=== PATIENT | male | born 1930 | race Caucasian/White ===

== ENCOUNTER 2017-02-05 10:20 | Observation (INO) | payer OTHER ==
--- NOTE | 2017-02-05 11:01 | CPEKG ---
Heart Rate: 91 RR Interval: 659 QRSD Interval: 94 QT Interval: 400 QTC Interval: 493 QRS [place]: 263 T Wave Vilonia: 4 EKG Severity - ABNORMAL ECG - EKG Impression: ATRIAL FIBRILLATION EKG Impression: LEFT ANTERIOR FASCICULAR BLOCK EKG Impression: LOW VOLTAGE IN FRONTAL LEADS EKG Impression: BORDERLINE R WAVE PROGRESSION, ANTERIOR LEADS EKG Impression: BORDERLINE PROLONGED QT INTERVAL Electronically Signed By: Robert Lewis 05-Feb-2017 15:00:40
[2017-02-05 11:04] LABS: % IMMATURE GRANULYOCYTES 0.3 % (0.0-1.1); ABSOLUTE IMMATURE GRANULOCYTES 0.02 10^3/uL (0.00-0.10); ADD DIFF? NO; ADD MORPH? NO; ADD SCAN? NO; ATYPICAL LYMPHOCYTE FLAG 0 (0-99); FRAGMENT RBC FLAG 0 (0-99); HEMATOCRIT 44.6 % (40.0-51.0); HEMOGLOBIN 15.1 g/dL (13.7-17.5); LEFT SHIFT FLG 0 (0-99); LIPEMIA HEMOLYSIS FLAG 90 (0-99); MEAN CELL HEMOGLOBIN 32.8 pg (27.9-34.1); MEAN CELL HEMOGLOBIN CONCENTR. 33.9 g/dL (32.4-36.7); MEAN CELL VOLUME 96.7 fL (81.5-99.8); PLATELET CLUMPS FLAG 30 (0-99); PLATELET COUNT 94 10^3/uL (150-400); RED BLOOD CELL COUNT 4.61 10^6/uL (4.40-6.38); RED CELL DISTRIBUTION WIDTH 13.5 % (11.5-15.2)
[2017-02-05 11:14] LABS: INR 2.99 (0.83-1.16); PROTIME(PATIENT) 31.5 SEC (12.0-15.0)
[2017-02-05 11:15] LABS: APTT 46.2 SEC (23.0-38.0)
[2017-02-05 11:33] LABS: ANION GAP 11 mEq/L (8-16); CALCIUM 9.1 mg/dL (8.5-10.4); CARBON DIOXIDE 25 mEq/l (22-31); CHLORIDE 104 mEq/L (97-110); CREATININE 0.8 mg/dL (0.7-1.3); GLOMERULAR FILTRATION RATE > 60; GLUCOSE 91 mg/dL (70-100); POTASSIUM 4.1 mEq/L (3.5-5.2); SODIUM 140 mEq/L (134-144)
--- NOTE | 2017-02-05 12:01 | EDPHY ---
H & P Stated Complaint: coughing up blood; on xarelto Time Seen by Provider: 02/05/17 12:00 HPI/ROS: HPI: This 86-year-old male who presents with Chief Complaint: Coughing up blood Location: Chest Quality: Coughing up blood Duration: Since yesterday Signs and Symptoms:+ productive cough, + shortness of breath on exertion and at rest, + lower extremity swelling, + orthopnea, + paroxysmal nocturnal dyspnea, no bleeding gums, no bruising Timing: Gradually worsening Severity: Moderate Context: Patient has a history of atrial fibrillation on Xarelto x 1 year, tobacco use since age 17 reports he only chews nicotine gum now but son is doubtful that he isn't still smoking cigarettes, congestive heart failure on Lasix 20 mg daily. Patient reports increasing frequency of productive cough over the last week. Yesterday he noted blood tinged sputum and this morning he coughed up a large amount of blood; has not had any episodes since in the last 4 hours. Son and report compliance with medications. Certified Scrum Master is Dr. Samson Kern. Patient is not on oxygen at home. Modifying Factors: None Comment: ROS: Constitutional: No fever, no chills, no weight loss Eyes: No blurred vision Respiratory: No shortness of breath, no cough Cardiovascular: No chest pain Gastrointestinal: No nausea, no vomiting no diarrhea Genitourinary: No dysuria Extremities: No myalgias Neurologic: No weakness, no numbness Skin: No rashes Hematologic: No bruising, no bleeding MEDICAL/SURGICAL/SOCIAL HISTORY: Lives with his . Retired. Coronary artery disease, COPD. Source: Patient, Family Exam Limitations: No limitations - Personal History Current Tetanus Diphtheria and Acellular Pertussis (TDAP): Yes Tetanus Vaccine Date: WITHIN 10 YRS - Medical/Surgical History Hx Asthma: Yes Hx Chronic Respiratory Disease: Yes Hx Diabetes: No Hx Cardiac Disease: Yes Hx Renal Disease: No Hx Cirrhosis: No Hx Alcoholism: No Hx HIV/AIDS: No Hx Splenectomy or Spleen Trauma: No Other PMH: triple bypass,copd,asthma - Social History Smoking Status: Former smoker - Physical Exam Exam: CONSTITUTIONAL: Pleasant elderly white male, wearing nasal cannula, awake and alert, no obvious distress HEENT: Atraumatic and normocephalic, PERRL, EOMI. Tympanic membranes clear. Oropharynx clear, no oral lesions; no petechiae; no exudate and moist pink mucosa. Airway patent. No lymphadenopathy. No meningismus. Cardiovascular: Normal S1/S2, irregular rate, regular rhythm, without murmur rub or gallop. PULMONARY/CHEST: Symmetrical and nontender. Clear to auscultation bilaterally Good air movement. No accessory muscle usage. ABDOMEN: Soft, nondistended, nontender, no rebound, no guarding, no peritoneal signs, no masses or organomegaly. No CVAT. EXTREMITIES: 2/2 pulses, no deformities, no clubbing, no cyanosis. 1+ pitting pedal edema. NEUROLOGICAL: no focal neuro deficits. GCS 15. SKIN: Warm and dry, no erythema. no rash. Good capillary refill. Constitutional: Initial Vital Signs Temperature (C) 36.7 C 02/05/17 10:34 Heart Rate 98 02/05/17 10:34 Respiratory Rate 20 02/05/17 10:34 Blood Pressure 171/102 H 02/05/17 10:34 O2 Sat (%) 88 L 02/05/17 10:34 O2 Delivery Mode Room Air O2 (L/minute) 2 Allergies/Adverse Reactions: aspirin Allergy (Verified 02/05/17 10:31) REGULAR DOSE CAUSES SOB-CAN TAKE 81 MG SEASONAL Allergy (Uncoded 03/07/12 11:15) SINUS ISSUES Home Medications: Medication Instructions Recorded Aspirin [Aspirin 81mg (*)] 81 mg PO DAILY 02/05/17 Diazepam [Valium 5 MG (*)] 5 mg PO DAILY PRN 02/05/17 Diltiazem HCl [Cartia XT 240mg] 240 mg PO DAILY 02/05/17 Furosemide [Lasix 20 MG (*)] 20 mg PO DAILY 02/05/17 Herbals/Supplements -Info Only 1 ea PO DAILY 02/05/17 Hydrocodone/Acetaminophen [Elma 0.5 each PO DAILY PRN 02/05/17 7.5-325 Tablet] Ipratropium [Atrovent Hfa (*)] 2 puffs IH QID 02/05/17 Metoprolol Tartrate [Lopressor 25 25 mg PO BID 02/05/17 mg (*)] Nicotine Polacrilex [Nicotine Gum] 2 mg BC DAILY 02/05/17 Rivaroxaban [Xarelto 10mg (*)] 20 mg PO DAILY 02/05/17 Terazosin HCl [Hytrin 2 MG (*)] 2 mg PO DAILY 02/05/17 Medical Decision Making - Diagnostics EKG Interpretation: 12 lead EKG: Indication: Dyspnea Rhythm: sinus, rate 73 bpm [place]: Normal NE: Normal QRS: RBBB ST segments: Nonspecific changes INTERPRETATION: Normal EKG The 12 lead EKG was interpreted by myself. Imaging Results: Imaging Impressions Chest X-Ray 02/05/17 10:42 Impression: Bronchitis with probable left basilar atelectasis. Chest/Thorax CTA 02/05/17 12:00 Impression: 1. No evidence for pulmonary embolus. 2. Evidence of atherosclerotic disease in the thoracic aorta and coronary arteries. Mild cardiomegaly. 3. Peribronchial wall thickening, indicating underlying bronchitis. Nodular opacification and atelectasis in left lung base, which could be scarring from prior pneumonia as seen previously or recurrent pneumonia. Mild scarring and atelectasis at the right lung base. 4. Multiple hepatic cysts. 5. Other chronic findings as above. Results called and discussed with Elke Zambrano PA-C on February 05, 2017 at 1350 hours. ED Course/Re-evaluation: Labs, chest xray, EKG, CT chest Upon arrival O2 sats 88% on room air. Placed on 4 L nasal cannula O2 sats vary between 92-94%. Chest x-ray with compared to prior 1 in March is basically the same; possibly increased pulmonary vascular congestion on the left side. Suspect acute on chronic congestive heart failure exacerbation H&H stable; INR 2.99. ProBNP ~ 2000; IV Lasix 40 mg given Chart review shows last echocardiogram 04/16/2017 with a normal EF 1345: Called by radiologist CTA chest does not show any pulmonary embolism, + coronary atherosclerosis, left lung base has some consolidation same when compared to prior, ? Bronchitis; IV Solumedrol 125 mg given After speaking with patient; he now relates that he had a left-sided empyema drained years ago; this would explain the scarring in the lung base 1347: ED decision to consult for admission, spoke with hospitalist, Lucía, who kindly agrees to admit to med surg with telemetry to Dr. Pedersen Differential Diagnosis: Shortness of breath including but not limited to pulmonary infectious process, COPD, asthma, pulmonary embolus and congestive heart failure. Critical Care Time: I spent a total of 36 minutes of critical care time in obtaining history, performing a physical exam, bedside monitoring of interventions, collecting and interpreting tests and discussion with consultants but not including time spent performing procedures. Diagnosis: congestive heart failure; hypoxia; hemoptysis ; bronchitis; chronic anticoagulation - Data Points Laboratory Results: Laboratory Results 02/05/17 10:50 02/05/17 10:50 02/05/17 02/05/17 02/05/17 10:50 10:50 10:50 WBC RBC Hgb Hct MCV MCH MCHC RDW Plt Count MPV Neut % (Auto) Lymph % (Auto) [place] % (Auto) Eos % (Auto) Baso % (Auto) Nucleat RBC Rel Count Absolute Neuts (auto) Absolute Lymphs (auto) Absolute Monos (auto) Absolute Eos (auto) Absolute Basos (auto) Absolute Nucleated RBC Immature Gran % Immature Gran # PT 31.5 SEC H SEC (12.0-15.0) INR 2.99 H (0.83-1.16) APTT 46.2 SEC H SEC (23.0-38.0) Sodium 140 mEq/L mEq/L (134-144) Potassium 4.1 mEq/L mEq/L (3.5-5.2) Chloride 104 mEq/L mEq/L (97-110) Carbon Dioxide 25 mEq/l mEq/l (22-31) Anion Gap 11 mEq/L mEq/L (8-16) BUN 13 mg/dL mg/dL (7-23) Creatinine 0.8 mg/dL mg/dL (0.7-1.3) Estimated GFR > 60 Glucose 91 mg/dL mg/dL (70-100) Calcium 9.1 mg/dL mg/dL (8.5-10.4) Troponin I 0.012 ng/mL ng/mL (0.000-0.034) NT-Pro-B Natriuret Pep 2010 pg/mL H pg/mL (0-450) 02/05/17 10:50 WBC 6.04 10^3/uL 10^3/uL (3.80-9.50) RBC 4.61 10^6/uL 10^6/uL (4.40-6.38) Hgb 15.1 g/dL g/dL (13.7-17.5) Hct 44.6 % % (40.0-51.0) MCV 96.7 fL fL (81.5-99.8) MCH 32.8 pg pg (27.9-34.1) MCHC 33.9 g/dL g/dL (32.4-36.7) RDW 13.5 % % (11.5-15.2) Plt Count 94 10^3/uL L 10^3/uL (150-400) MPV 11.0 fL fL (8.7-11.7) Neut % (Auto) 63.6 % % (39.3-74.2) Lymph % (Auto) 23.5 % % (15.0-45.0) [place] % (Auto) 8.6 % % (4.5-13.0) Eos % (Auto) 3.3 % % (0.6-7.6) Baso % (Auto) 0.7 % % (0.3-1.7) Nucleat RBC Rel Count 0.0 % % (0.0-0.2) Absolute Neuts (auto) 3.84 10^3/uL 10^3/uL (1.70-6.50) Absolute Lymphs (auto) 1.42 10^3/uL 10^3/uL (1.00-3.00) Absolute Monos (auto) 0.52 10^3/uL 10^3/uL (0.30-0.80) Absolute Eos (auto) 0.20 10^3/uL 10^3/uL (0.03-0.40) Absolute Basos (auto) 0.04 10^3/uL 10^3/uL (0.02-0.10) Absolute Nucleated RBC 0.00 10^3/uL 10^3/uL (0-0.01) Immature Gran % 0.3 % % (0.0-1.1) Immature Gran # 0.02 10^3/uL 10^3/uL (0.00-0.10) PT INR APTT Sodium Potassium Chloride Carbon Dioxide Anion Gap BUN Creatinine Estimated GFR Glucose Calcium Troponin I NT-Pro-B Natriuret Pep Medications Given: Discontinued Medications Furosemide (Lasix Injection) 40 mg IVP EDNOW ONE Stop: 02/05/17 12:41 Last Admin: 02/05/17 13:17 Dose: 40 mg Departure - Departure Disposition: [facility] Clinical Impression: Hemoptysis, Chronic anticoagulation, Bronchitis Acute on chronic congestive heart failure Qualifiers: Congestive heart failure type: diastolic Qualified Code(s): I50.33 - Acute on chronic diastolic (congestive) heart failure
[2017-02-05] MEDS ORDERED: IOPAMIDOL (ISOVUE 370) 100 ML BTL IV ONE (12:08)
[2017-02-05 12:30] LABS: TROPONIN I 0.012 ng/mL (0.000-0.034)
[2017-02-05] MEDS ORDERED: FUROSEMIDE 40 MG/4 ML VIAL IVP ONE (12:40)
[2017-02-05] MEDS ORDERED: methylPREDNISolone SOD SUCC 125 MG/2 ML VIAL IVP ONE (13:57)
[2017-02-05] MEDS ORDERED: DIAZEPAM 5 MG TAB PO PRN (15:49)
[2017-02-05] MEDS ORDERED: IPRATROPIUM/ALBUTEROL 3 ML DEYVIAL IH PRN (15:51)
[2017-02-05] MEDS ORDERED: IPRATROPIUM HFA INHALER IH SCH (16:00)
--- NOTE | 2017-02-05 16:04 | GHP ---
[f rep st] HISTORY AND PHYSICAL DATE OF ADMISSION: 02/05/2017 CHIEF COMPLAINT: Coughing up blood. HPI: This is an 86-year-old male on anticoagulation for chronic atrial fibrillation, with history of coronary artery disease and COPD. He presented to the emergency department today after discovering a large amount of blood in his mouth. He denies any bleeding from his nose. He denies any chest susannah n. He has been coughing for weeks. He also tells me that he has been having worsening swelling in h is legs as well as some shortness of breath. Shortness of breath has been worsening over the past fe w weeks. He denies any fevers or chills. PAST MEDICAL HISTORY: 1. Chronic atrial fibrillation. 2. Coronary artery disease. 3. COPD. 4. Hypertension. 5. Hyperlipidemia. 6. BPH. 7. Chronic low back pain. 8. Osteoarthritis. 9. GERD. PAST SURGICAL HISTORY: 1. CABG in 2010. 2. Ventral hernia repair in 2011. 3. Cystoscopy and TURP for BPH and ureteral stricture in 2013. HOME MEDICATIONS: Reviewed. Refer to [facility] for details. ALLERGIES: Aspirin. SOCIAL HISTORY: He lives in [facility]. 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 He is a former smoker. He drink s alcohol occasionally. He denies any illicit drug use. FAMILY HISTORY: Reviewed and noncontributory. REVIEW OF SYSTEMS: Comprehensive 10-point review of systems was done and is negative, except for as mentioned in HPI. PHYSICAL EXAM: VITAL SIGNS: Blood pressure 136/99, pulse of 98, respiratory rate 16, O2 saturation was 74% on room air. Temperature afebrile. GENERAL: No acute distress. HEAD: Normocephalic, atra umatic. EYES: PERRLA. Sclerae anicteric. NOSE: Patient does have some evidence of bleeding in hi s left nostril. MOUTH: Moist mucous membranes. NECK: Supple. No lymphadenopathy. CARDIOVASCULAR : S1, S2. No JVD. There is bilateral lower extremity pitting edema. PULMONARY: Lungs are clear t o auscultation and percussion bilaterally. There are no wheezes or rales. Normal respiratory effort . ABDOMEN: Soft, nontender, nondistended. No guarding or rebound tenderness. Normoactive bowel so unds. EXTREMITIES: No clubbing or cyanosis. NEURO: Cranial nerves 2 through 12 grossly intact. N o focal motor or sensory deficits. SKIN: Clear. No rashes. DIAGNOSTICS: WBC 6, hemoglobin 15.1, hematocrit 44.6, platelets 94. Sodium 140, potassium 4.1, chlo ride 104, CO2 25, BUN 13, creatinine 0.8, glucose 91. BNP was 2010. Troponin 0.012. CT angio of the chest was reviewed, showing no evidence for PE. There is evidence of atherosclerotic disease in the thoracic aorta and coronary arteries. There is peribronchial wall thickening, indica ting underlying bronchitis. Multiple hepatic cysts. Please refer to report for full details. EKG, which I visualized and personally interpreted, shows atrial fibrillation, rate 91 beats per melvin te. No acute ischemic changes. ASSESSMENT AND PLAN: This is an 86-year-old male presenting with: 1. Hemoptysis, which could be due to a nosebleed. CT angio of the chest was done that was negative for pulmonary embolism. I suppose his hemoptysis could also be from bronchitis. 2. Acute on chronic respiratory failure. Suspect acute on chronic diastolic heart failure. 3. History of coronary artery disease and appears to be stable. 4. Rate controlled atrial fibrillation. PLAN: 1. Place on observation. 2. Mucinex. 3. Will obtain an echocardiogram to further evaluate his cardiac function. Last echo done in [facility] was in March 2014. Cardiology will be consulted as indicated. 4. Lasix 20 mg IV x1 and re-dose in the morning as indicated. 5. The patient requests to be full code status. 6. We will treat his cough supportively with Mucinex and will defer starting antibiotics at this hardeep cture. We will add a procalcitonin and consider antibiotics if it is elevated. He was given a dose of Solu-Medrol in the emergency department, which I will defer re-dosing at this time since he does n ot really appear to be wheezing. /[id number]/MODL
[2017-02-05] MEDS ORDERED: HYDROCODONE/APAP 10/325 TAB PO PRN (16:28)
[2017-02-05] MEDS: ASPIRIN 81 MG CHEWABLE TAB PO SCH ×2 (17:13→17:14)
[2017-02-05] MEDS: DILTIAZEM XR 240 MG CAP PO SCH (17:13)
[2017-02-05] MEDS: RIVAROXABAN 20 MG TAB PO SCH (17:13)
[2017-02-05] MEDS: METOPROLOL TARTRATE 25 MG TAB PO SCH (20:42)
[2017-02-05] MEDS ORDERED: NICOTINE POLACRILEX 2 MG GUM B PRN (20:43)
[2017-02-06 04:13] LABS: ANION GAP 10 mEq/L (8-16); CALCIUM 8.7 mg/dL (8.5-10.4); CARBON DIOXIDE 24 mEq/l (22-31); CHLORIDE 105 mEq/L (97-110); CREATININE 0.8 mg/dL (0.7-1.3); GLOMERULAR FILTRATION RATE > 60; GLUCOSE 145 mg/dL (70-100); SODIUM 139 mEq/L (134-144)
[2017-02-06 04:19] LABS: % IMMATURE GRANULYOCYTES 0.6 % (0.0-1.1); ABSOLUTE IMMATURE GRANULOCYTES 0.03 10^3/uL (0.00-0.10); ADD DIFF? NO; ADD MORPH? NO; ADD SCAN? NO; ATYPICAL LYMPHOCYTE FLAG 0 (0-99); FRAGMENT RBC FLAG 0 (0-99); HEMATOCRIT 43.7 % (40.0-51.0); HEMOGLOBIN 14.6 g/dL (13.7-17.5); LEFT SHIFT FLG 0 (0-99); LIPEMIA HEMOLYSIS FLAG 80 (0-99); MEAN CELL HEMOGLOBIN 32.6 pg (27.9-34.1); MEAN CELL HEMOGLOBIN CONCENTR. 33.4 g/dL (32.4-36.7); MEAN CELL VOLUME 97.5 fL (81.5-99.8); MEAN PLATELET VOLUME 11.6 fL (8.7-11.7); PLATELET CLUMPS FLAG 10 (0-99); PLATELET COUNT 109 10^3/uL (150-400); RED BLOOD CELL COUNT 4.48 10^6/uL (4.40-6.38); RED CELL DISTRIBUTION WIDTH 13.2 % (11.5-15.2)
--- NOTE | 2017-02-06 07:46 | ECHO ---
[id number] + + [address] : : [place] [address] : : [phone] + + Adult Echocardiographic Report + + :Name: ODETTE MAHMOOD Study Date: 02/05/2017 04:14 PM : : Hospital Admission Number: [id number] : :: 1930 Gender: Male Height: 70 in : :Age: 86 yrs Race: WH Weight: 210 lb : :Reason For Study: Eval LV Fx : : BSA: 2.1 meters2: :History: New onset of A-fib : + + MMode/2D Measurements & Calculations IVSd: 1.1 cm LVIDd: 3.8 cm FS: 41.3 % Ao root diam: 3.6 cm LVPWd: 1.1 cm LVIDs: 2.2 cm EDV(Teich): 62.0 ml ACS: 0.90 cm ESV(Teich): 16.8 ml EF(Teich): 72.9 % Normal Measurement Values: + + :LVIDd (3.5-5.7cm) IVSd (0.6-1.1cm) LVPWd (0.6-1.1cm) Aortic Root (2.0-3.7cm)Left Atrium (1.5-4.0cm): :LV Vol(d) (76-115ml) LV Vol(s) (29-48ml) Ejec Fraction (50-65%)PV Jaquan (0.6- 1.2m/s) TV Jaquan (0.4-1.0m/s) : :MV E Jaquan (0.8-1.0m/s)MV A Jaquan (0.3-1.0m/s)LVOT Jaquan (0.7-1.2m/s) Asc Ao Jaquan ( 0.9-1.8m/s) : + + Doppler Measurements & Calculations MV E max jaquan: Ao V2 max: LV V1 max: MR max jaquan: 105.0 cm/sec 143.0 cm/sec 64.2 cm/sec 436.0 cm/sec Ao max P.2 mmHgLV V1 max PG: MR max P.6 mmHg 76.0 mmHg PA V2 max: TR max jaquan: 73.3 cm/sec 349.0 cm/sec PA max P.1 mmHg TR max P.7 mmHg RAP systole: 5.0 mmHg RVSP(TR): 53.7 mmHg Left Ventricle The left ventricle is normal in size. There is normal left ventricular wall thickness. There is Doppler evidence for diastolic dysfunction. Ejection Fraction = 55%. Right Ventricle The right ventricle is mildly dilated. Atria The left atrium is mildly dilated. The right atrium is mildly dilated. Mitral Valve There is mild mitral annular calcification. There is no mitral valve stenosis. There is mild mitral regurgitation. Tricuspid Valve Normal tricuspid valve. There is mild tricuspid regurgitation. Right ventricular systolic pressure is 54mmHg. There is Doppler evidence for moderate pulmonary hypertension. Aortic Valve The aortic valve is trileaflet. All three leaflets are thickened and sclerotic. There is no aortic stenosis. Trace to mild aortic regurgitation. Pulmonic Valve The pulmonic valve is not well visualized. There is no pulmonic valvular regurgitation. Great Vessels The aortic root is normal size. Pericardium/Pleural There is no pericardial effusion. Conclusion A complete two-dimensional transthoracic echocardiogram was performed (2D, M-mode, Doppler and color flow Doppler). 1. The left ventricle is normal in size and function. The Ejection Fraction = 55%. 2. There is biatrial enlargement. 3. There is mild mitral annular calcification. There is mild mitral regurgitation. 4. The aortic valve is trileaflet. All three leaflets are thickened and sclerotic. There is no aortic stenosis. Trace to mild aortic regurgitation. 5. There is Doppler evidence for moderate pulmonary hypertension. Right ventricular systolic pressure is 54mmHg. 6. When compared to the 04/17/14 study. The pulmonary artery pressure has increased from 43 mmHg to 54 mmHg. Final Reading Physician: Paul Arana MD electronically signed on 02/06/2017 07:45 AM Ordering Physician: Jun Pedersen Performed By: Avila Lyles, CS
[2017-02-06] MEDS: ASPIRIN 81 MG CHEWABLE TAB PO SCH (08:13)
[2017-02-06] MEDS ORDERED: TERAZOSIN HCL 2 MG CAP PO SCH (09:00)
[2017-02-06] MEDS ORDERED: Herbals/Supplements -Info Only PO SCH (09:00)
[2017-02-06] MEDS ORDERED: FUROSEMIDE 20 MG/2 ML VIAL IVP SCH (09:00)
[2017-02-06] MEDS: METOPROLOL TARTRATE 25 MG TAB PO SCH (10:16)
[2017-02-06] MEDS: DILTIAZEM XR 240 MG CAP PO SCH (10:16)
[2017-02-06] MEDS: RIVAROXABAN 20 MG TAB PO SCH (10:17)
[2017-02-06 10:47] VITALS: BP 108/74; PULSE 86; RESP 19; TEMP 97.9; O2SAT 92
--- NOTE | 2017-02-06 11:28 | GHP ---
[f rep st] HISTORY AND PHYSICAL DATE OF ADMISSION: 02/05/2017 CHIEF COMPLAINT: CHF. HPI: Kervin is an 86-year-old gentleman usually followed by Dr. Eisenberg in our office. I had seen him actually earlier this year. He has chronic atrial fibrillation, on Xarelto, on diltiazem, metoprolo l for rate control, with compensated diastolic heart failure. He was admitted yesterday after a nose bleed which apparently has stopped. He does use oxygen at home. When I last saw him in September he had compensated CHF. We tried to get him to use support hose which he cannot wear. He otherwise is doin g well. He denies any CAD symptomatology. He is compliant with his medications however. He did see ENT, is not having continuous issues with nose bleeds. For now, no changes. In reviewing his labs, he is in mild CHF. He got IV Lasix last night. Previously we had spoken about increasing his Lasix at home. He did not want to do this necessarily because of the inconvenience. We talked again abou t support hose, which he is reluctant to use. He has agreed to try adding spironolactone 12.5 mg p.o . daily with his Lasix to see if we can get some added benefit. He has a normal potassium and creati nine. PAST MEDICAL HISTORY: History of atrial fibrillation as above, coronary artery disease, hyperlipidem ia, hypoxemia from smoking, status post bypass grafting. MEDICATIONS: See reconciliation form. No new medications. ALLERGIES: He has no known allergies. SOCIAL HISTORY: He has grown children who are very close to him. 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 He will try to exercise more. REVIEW OF SYSTEMS: A 10-point review of systems is negative except for the nosebleeds. He is actual ly not having any ACS symptomatology, PND, orthopnea. He does have chronic pedal edema. No shortnes s of breath. No GI blood loss. PHYSICAL EXAM: VITAL SIGNS: Blood pressure is 108 to 134/70s to 80s. He is in atrial fibrillation with occasional sinus bradycardia. GENERAL: He is an elderly male, alert, oriented. MOUTH: Oropha rynx dry. NECK: Supple. BACK: CV and chest wall without palpable tenderness. I did not see any s kin lesions. LUNGS: Some bibasilar crackles. CARDIOVASCULAR: Irregular, irregular rhythm with sys tolic murmur. ABDOMEN: Soft, nontender. MUSCULOSKELETAL: Showed chronic 2 to 3+ edema. His pulse s were strong in his arms and dorsalis pedis pulses. LABS: White count 4, hemoglobin of 14. Troponin negative. BNP 2009. His creatinine 0.8 and potass ium 4.0. ASSESSMENT: 1. Atrial fibrillation on chronic rate control and Xarelto with some mild exacerbation of congestive heart failure. The patient has been seen in the outpatient clinic with this. This is a chronic sit uation. He is not having any unstable symptomatology. At this point, he has agreed to try adding sp ironolactone 12.5 mg p.o. q.a.m. along with his 20 mg p.o. Lasix. This can be titrated as tolerated or needed. He should have blood work this Sunday and can call our office for results. This all disc ussed with the patient. 2. Nosebleeds, apparently situational. There was no ongoing bleeding. He apparently had seen the E NT in the past. At this point, no further workup planned. I would discharge home as above with spironolactone 12.5 mg p.o. daily. We will give first dose here in the hospital to make sure he has no side effects. This was all discussed with the patient and hi s family, questions answered. /[id number]/MODL
[2017-02-06] MEDS ORDERED: FUROSEMIDE 20 MG TAB PO SCH (11:45)
[2017-02-06] MEDS ORDERED: SPIRONOLACTONE 25 MG TAB PO SCH (11:45)
--- NOTE | 2017-02-06 12:48 | GDS ---
[f rep st] DISCHARGE SUMMARY DISCHARGE DIAGNOSES: 1. Acute on chronic diastolic congestive heart failure. 2. Epistaxis resolved without signs of anemia. 3. Improved acute on chronic respiratory failure due to above. 4. History of coronary artery disease that appears to be stable. 5. Rate controlled atrial fibrillation on anticoagulation. CONSULTANTS: Dr. Dada Bernard, [facility]. HOSPITAL COURSE BY PROBLEM: 1. Acute respiratory failure due to acute on chronic diastolic heart failure. Patient was admitted to the hospital and was treated with IV furosemide. On hospital day #1, the patient's respiratory st atus has greatly improved. His weight was 95 kilos on admission and has decreased to 93 kilos on day of discharge. He was seen by Cardiology prior to discharge who recommended adding Aldactone to his usual home regime. 2. Hemoptysis versus epistaxis. The patient presented to the emergency department after he had a mo uth full of blood. On initial exam it appeared that his left naris did have some blood in it which i s very suspicious for epistaxis as the cause for his blood in his mouth. He has been continued on hi s Xarelto. His H and H have remained stable. A CT angio of the chest was done and was negative for PE. Refer to report for full details. PHYSICAL EXAMINATION: VITAL SIGNS: On day of discharge, blood pressure 108/74, pulse of 86, respira tory rate 19, O2 saturation 92% on 3 L. Temperature afebrile. GENERAL: No acute distress. HEART: S1, S2. LUNGS: Clear. ABDOMEN: Soft. EXTREMITIES: Have improving edema. PERTINENT LABS AND STUDIES DURING THIS HOSPITAL STAY: CT angio of the chest done on 02/05/2017, refe r to report. Echocardiogram done 02/05/2017 shows ejection fraction of 55% with bi-atrial enlargemen t. There was increase in pulmonary artery pressures from 43 mmHg to 54 mmHg over the past 3 years. Refer to report for full details. HOME MEDICATIONS: Please refer to discharge medication reconciliation in [facility] for full details. Below is a preliminary list. New medications on hospital discharge: Aldactone 12.5 mg daily. DISCHARGE INSTRUCTIONS: The patient will be discharged from the hospital where Dr. Bernard has davi mmended that he have a metabolic panel done later on this week at [facility]. He should follow up with Dr. Eisenberg in 1 week as well. Patient may benefit from wearing BEATRIZ hose. /[id number]/MODL
== END 2017-02-06 13:20 | disposition home or self-care (01) ==
LOC: INTOOBSV 13:56 → F2W 16:24
PROVIDERS: ADMIT Family Medicine; ATTEND Family Medicine
DX: I50.33 Acute on chronic diastolic (congestive) heart failure (principal); J96.20 Acute and chronic respiratory failure, unspecified whether with hypoxia or hypercapnia; R04.0 Epistaxis; R04.2 Hemoptysis; I25.10 Atherosclerotic heart disease of native coronary artery without angina pectoris; I48.2 Chronic atrial fibrillation; I11.0 Hypertensive heart disease with heart failure; Z72.0 Tobacco use; J44.9 Chronic obstructive pulmonary disease, unspecified; E78.5 Hyperlipidemia, unspecified; N40.0 Benign prostatic hyperplasia without lower urinary tract symptoms; G89.29 Other chronic pain; M19.90 Unspecified osteoarthritis, unspecified site; K21.9 Gastro-esophageal reflux disease without esophagitis; Z79.01 Long term (current) use of anticoagulants; Z95.1 Presence of aortocoronary bypass graft
CPT/HCPCS: 71020; 71275; 93005; 93306; J1940; Q9967; 96374

== ENCOUNTER → 2017-08-22 | Outpatient (CLI) | payer OTHER | LOC: FIMAGING 12:55 | PROVIDERS: ATTEND Internal Medicine Pulmonary Disease | DX: J98.6 Disorders of diaphragm (principal) ==

== ENCOUNTER → 2017-12-24 | Outpatient (CLI) | payer OTHER ==
--- NOTE | 2017-12-24 15:24 | ECHO ---
[email or web address] [address] [address] Main: [phone] Fax: Transthoracic Echocardiogram Name: ODETTE MAHMOOD MR#: [id number] Study Date: 12/24/2017 Study Time: 01:51 PM Date of : 1930 Age: 87 year(s) Height: 177.8 cm (70 in.) Weight: 94.35 kg (208 lb.) BSA: 2.12 m2 Gender: Male Examination: Echo Indication: assess LV/RV function and heart valves Image Quality: Adequate Contrast: Requested by: Samson Eisenberg BP: / Heart Rate: Rhythm: Indication: assess LV/RV function and heart valves Procedure Staff [employer]ding [employer] Operator: Opal Cho [facility] Reading Physician: Lavelle Retana MD Requesting Provider: Conclusions: Normal global systolic LV function. EF is 55 %. There is mild thickening of the mitral valve leaflets. Moderate mitral annular calcification. Mild to moderate mitral regurgitation. Mild aortic valve regurgitation is present. Moderate tricuspid regurgitation is present. Right ventricular systolic pressure measures 53mmHg. Mild to moderate pulmonic valve regurgitation. Mild dilatation MPA. Measurements: Chambers Valvular Assessment AV/MV Valvular Assessment TV/PV Normal Normal Normal Name Value Range Name Value Range Name Value Range Ao Eileen (MM): 3.5 cm (2.2 cm-3.7 AV Vmax: 1.72 m/s (1 m/s-1.7 TR Vmax: 3.29 mm/s ( - ) cm) m/s) TR PGmax: 43 mmHg ( - ) IVSd (2D): 1.4 cm (0.6 cm-1.1 AV maxP mmHg ( - ) syst. PAP: 53 mmHg ( - ) cm) LVOT Vmax: 0.82 m/s (0.7 m/s-1.1 PV Vmax: 0.62 m/s (0.6 m/s-0.9 LVDd (2D): 3.3 cm (4.2 cm-5.9 m/s) m/s) cm) DAVID (Vmax): 2.2 cm2 ( - ) PV PGmax: 2 mmHg ( - ) LVDs (2D): 2.4 cm (2.1 cm-4 AR (PHT): 571 ms ( - ) cm) MV E Vmax: 1.18 m/s ( - ) LVPWd (2D): 1.0 cm (0.6 cm-1 cm) LVOTd 2.4 cm 2.4 cm mm LVEF (BP): 55 % (>=55 %) RVDd(2D): 4.0 cm (1.9 cm-3.8 cmmm) Patient: ODETTE MAHMOOD Study Date: 12/24/2017 Page 1 of 2 01:51 PM Continued Measurements: Chambers Valvular Assessment AV/MV Valvular Assessment TV/PV Name Value Name Value Name Value LA Volume: 89 ml MV DecTime: 108 m/s CVP (est.): 10 mmHg LA Volume Index: 42.0 ml/m2 MV E' Septal: 0.05 m/s TAPSE: 1.4 cm MV E/E' Septal: 24.70 RA Area: 22.1 cm2 MV E/E' Lateral: 11.50 AR Vmax: 3.72 cm/s Additional Vessels Pulmonary Vein/Artery Name Value Name Value Ao Ascendin.3 cm Main Pulm Artery: 3.3 cm Findings: Left Ventricle: Normal size left ventricle. Mild concentric LV hypertrophy. Normal global systolic LV function. EF is 55 %. No regional wall motion abnormality. Unable to assess diastolic dysfunction. Mild sigmoid septum commonly found in the elderly. Right Ventricle: Mildly dilated right ventricle. Mildly reduced RV function. Left Atrium: The left atrium is moderately dilated. Right Atrium: The right atrium is mildly dilated. Mitral Valve: There is mild thickening of the mitral valve leaflets. Moderate mitral annular calcification. Mild to moderate mitral regurgitation. No mitral stenosis is present. Aortic Valve: The aortic valve is tri-leaflet. Mild aortic cusp calcification is noted. Mild aortic valve regurgitation is present. No aortic valve stenosis is present. Tricuspid Valve: The tricuspid valve is normal in appearance and function. Moderate tricuspid regurgitation is present. Right ventricular systolic pressure measures 53mmHg. The pulmonary artery pressure is moderately increased. Pulmonic Valve: The pulmonic valve is normal in appearance. Mild to moderate pulmonic valve regurgitation. Aorta: Normal size aortic root measuring 3.5 cm. Normal size ascending aorta measuring 3.3 cm. Pulmonary Artery: Mild dilatation MPA. Pericardium: No pericardial effusion. (No Signature Object) Patient: ODETTE MAHMOOD Study Date: 12/24/2017 Page 2 of 2 01:51 PM [id number]
== END ==
LOC: FCP 13:33
PROVIDERS: ATTEND Internal Medicine Interventional Cardiology
DX: I48.91 Unspecified atrial fibrillation (principal); I25.10 Atherosclerotic heart disease of native coronary artery without angina pectoris; I10 Essential (primary) hypertension